=== PATIENT | female | born 1940 | race American Indian/Alaskan Native ===

== ENCOUNTER 2020-03-24 13:18 | Outpatient (CLI) | payer MEDICARE, OTHER ==
--- NOTE | 2020-03-24 15:42 | Mammography Report ---
DIGITAL DIAGNOSTIC MAMMOGRAM WITH CAD , 03/24/2020 CLINICAL INFORMATION / INDICATION: The patient has a history of a new left breast lump and nipple thi ckening. She underwent ultrasound-guided biopsy of the left breast lump and left axillary lymph node in Dr. Man's office earlier today. TECHNIQUE: Digital bilateral mammographic imaging was performed. This examination was interpreted with the benefit of Computer-aided Detection analysis. COMPARISON: Screening mammogram, 03/13/2019 and 02/28/2018 FINDINGS: Breast Density: The breasts are heterogeneously dense, which may obscure small masses. Right breast: No dominant mass, suspicious calcifications or architectural distortion in the right br east. Few scattered right breast calcifications appear stable. Left breast: There is a new irregular mass which contains a biopsy clip in the left breast at the 11: 00 position posterior depth measuring approximately 3 cm. There is new associated skin thickening. IMPRESSION: Irregular left breast mass at the 11:00 position which is highly suggestive for neoplasm. The skin of the left breast is also diffusely thickened. Biopsy has been performed and results are p ending at this time. The patient has follow-up scheduled with Dr. Man. Follow up recommendation: Surgical consult BI-RADS Category 5: Highly Suggestive of Malignancy. A "normal" or negative report should not discourage follow up or biopsy of a clinically significant f inding. A written summary of these findings will be mailed to the patient. The patient will be entered into a mammography reporting system which will generate a reminder letter for the patient's next appointmen t at the appropriate interval. According to the [employer], yearly mammograms are recommended starting at age 40 and continuing as long as a woman is in good health. Breast MRI is recommended for women with an sakshi roximately 20-25% or greater lifetime risk of breast cancer, including women with a strong family his tory of breast or ovarian cancer and women who have been treated for Hodgkin's disease. Signer Name: Cindy Mejia MD Signed: 03/24/2020 3:37 PM Workstation Name: [id number]
== END 2020-03-24 13:19 | disposition home or self-care (01) ==
LOC: SPVWC 13:18
PROVIDERS: ATTEND Surgery
DX: N63.22 Unspecified lump in the left breast, upper inner quadrant (principal); R92.8 Other abnormal and inconclusive findings on diagnostic imaging of breast
CPT/HCPCS: 77066

== ENCOUNTER 2020-03-25 09:43 | Outpatient (CLI) | payer MEDICARE, OTHER | END 2020-03-25 09:44 | disposition home or self-care (01) | LOC: LABHHL 09:43 | PROVIDERS: ATTEND Surgery | DX: N63.22 Unspecified lump in the left breast, upper inner quadrant (principal); N63.32 Unspecified lump in axillary tail of the left breast; C50.212 Malignant neoplasm of upper-inner quadrant of left female breast; C50.311 Malignant neoplasm of lower-inner quadrant of right female breast; R92.2 Inconclusive mammogram | CPT/HCPCS: 88305; 88341; 88342; 88368 ==

== ENCOUNTER 2020-04-02 11:47 | Outpatient (CLI) | payer MEDICARE, OTHER | END 2020-04-02 11:48 | disposition home or self-care (01) | LOC: LABHHL 11:47 | PROVIDERS: ATTEND Surgery | DX: L98.9 Disorder of the skin and subcutaneous tissue, unspecified (principal) | CPT/HCPCS: 88305 ==

== ENCOUNTER 2020-04-27 14:30 | Outpatient (CLI) | payer MEDICARE, OTHER ==
--- NOTE | 2020-05-03 11:52 | Magnetic Resonance Report ---
MRI BREAST BILATERAL WITH AND WITHOUT CONTRAST, 04/27/2020 CLINICAL INFORMATION / INDICATION: BREAST CA C50.212. Patient presents for evaluation of extent of di sease of recent biopsy proven left breast cancer. TECHNIQUE: Axial T1 and T2-weighted fat sat images were obtained precontrast. Gadolinium-based contra st was injected intravenously and serial axial T1 weighted images with fat saturation were obtained. 3-D MIP projections, kinetic analysis, and subtraction imaging were utilized to evaluate. A dedicated 8-channel breast coil was used for image acquisition. COMPARISON: Prior mammogram 03/24/2020 FINDINGS: BREAST DENSITY: The breasts are heterogeneously dense, which may obscure small masses. BACKGROUND ENHANCEMENT: Low level background enhancement within both breasts. RIGHT BREAST: No dominant mass or suspicious area of enhancement in the right breast. LEFT BREAST: Corresponding with the site of biopsy-proven malignancy in the far posterior upper inner quadrant of the left breast, there is an irregular enhancing mass measuring up to approximately 6.6 x 4.1 x 3.8 cm. This dominant mass is located approximately 12 cm from the nipple, 1 cm from the medi al skin surface, and 1 to 2 mm from the chest wall, without definite evidence for chest wall invasion . There are multiple additional highly suspicious nodular areas of enhancement scattered throughout t he left breast, for example, a 1.1 cm mass in the 2:00 to 3:00 position located 8 cm from the nipple (series [id number], image 112), and a 7 mm mass in the anterior upper outer quadrant of the left breast ap proximately 3 cm from the nipple (series [id number], image 81). There is diffuse left breast skin thickeni ng and edema. AXILLAE: There is a pathologically enlarged left level 1 axillary lymph node measuring up to 2.2 x 1. 3 cm with diffuse cortical thickening. There is an indeterminate borderline right level 1 axillary ly mph node measuring up to 1.2 x 0.9 cm (series 6, image 401). ADDITIONAL FINDINGS: There is a 1.8 cm pulmonary nodule in the left upper lobe (series 5, image 12). There is a 6.3 x 2.1 cm lobulated cystic structure adjacent to the right shoulder (series 5, image 20 ). IMPRESSION: 1. Extensive multifocal and multicentric malignancy throughout the left breast as described above, wi th a dominant mass in the posterior upper inner quadrant, but additional scattered masses throughout the left breast. Associated diffuse left breast skin thickening and edema. 2. A pathologically enlarged left axillary lymph node is most compatible with joel metastasis. 3. A borderline right level 1 axillary lymph node is indeterminate. Otherwise, no suspicious MRI abno rmality identified in the right breast 4. A left upper lobe pulmonary nodule is indeterminate but worrisome for metastatic disease. A chest CT could provide further characterization as clinically warranted. 5. A lobulated cystic structure adjacent to the right shoulder is indeterminate and may reflect seque la of prior injury, though clinical correlation is recommended. Follow up recommendation: No recall. BI-RADS Category 6: Known Biopsy-Proven Malignancy. Signer Name: Leola Parker MD Signed: 05/03/2020 11:48 AM Workstation Name: [email or web address]
== END 2020-04-27 14:31 | disposition home or self-care (01) ==
LOC: SPVIMAG 14:30
PROVIDERS: ATTEND Surgery
DX: C50.212 Malignant neoplasm of upper-inner quadrant of left female breast (principal); N63.21 Unspecified lump in the left breast, upper outer quadrant; R91.1 Solitary pulmonary nodule; R59.0 Localized enlarged lymph nodes; N63.42 Unspecified lump in left breast, subareolar; R23.4 Changes in skin texture
CPT/HCPCS: A9575; C8908; 77049

== ENCOUNTER 2020-05-12 13:39 | Outpatient (CLI) | payer MEDICARE, OTHER ==
--- NOTE | 2020-05-14 08:01 | Ultrasound Report ---
ULTRASOUND BREAST LEFT COMPLETE, 05/12/2020 CLINICAL INFORMATION / INDICATION: Known left breast carcinoma. TECHNIQUE: Complete sonographic evaluation of all 4 quadrants and retroareolar region was performed. COMPARISON: Recent breast MRI 04/27/2020 and bilateral mammogram 03/24/2020 FINDINGS: Left breast: There is a large irregular solid mass in the upper inner quadrant of the left breast pos terior depth. Measurements sonographically are approximately 4 x 3.6 x 2.7 cm. MRI demonstrated large r measurements of 6.6 x 4.1 x 3.8 cm. The breast tissue is heterogeneous throughout. I do not see def initive sonographic correlate for the multiple small enhancing masses throughout the breast as noted on MRI that would suggest multicentric carcinoma. Incidental finding of subareolar ductal ectasia. Sonographic evaluation of the left axilla demonstrates at least one abnormal lymph node with diffuse cortical thickening of 6 mm. The appearance is very suggestive for metastatic lymph node. IMPRESSION: Biopsy-proven large breast carcinoma within the upper inner quadrant of the left breast. Abnormal left axillary lymph node highly suggestive for metastatic adenopathy. Follow up recommendation: Continued surgical consultation. BI-RADS Category 6: Known Biopsy-Proven Malignancy. A normal or "negative" report should not preclude biopsy or follow-up of a clinically suspicious find ing. Signer Name: Jimena Dong MD Signed: 05/12/2020 4:14 PM Workstation Name: [email or web address]
== END 2020-05-12 13:40 | disposition home or self-care (01) ==
LOC: SPVWC 13:39
PROVIDERS: ATTEND Surgery
DX: C50.212 Malignant neoplasm of upper-inner quadrant of left female breast (principal)

== ENCOUNTER 2020-05-27 13:17 | Outpatient (CLI) | payer MEDICARE, OTHER ==
--- NOTE | 2020-05-27 15:57 | PET Report ---
PET/CT HISTORY: C50.212. Initial staging of left breast cancer TECHNIQUE: The patient's fasting blood glucose was 130. The patient weighed 220 lbs. The patient w as injected with 14.2 mCi of FDG in the right hand at 1418 hours and imaging was started at 1503 hour s. The patient was imaged from the skull base to the thighs. All CT scans at this location are perfo rmed using CT dose reduction for ALARA by means of automated exposure control. Images were reviewed o n a workstation. COMPARISON: No relevant comparison. FINDINGS: IMAGED BRAIN: Physiologic FDG uptake. NECK: Physiologic FDG uptake. CHEST WALL: There is an approximate 5.7 x 4.0 cm medial left breast mass demonstrating hypermetaboli c activity with max SUV measuring 6.7. MEDIASTINUM: Physiologic FDG uptake. LUNGS: Physiologic FDG uptake. There is a 1.3 cm well-circumscribed nodule in the left upper lobe on CT image 72. There appears to be both soft tissue and fat density within consistent with a pulmonary hamartoma. No hypermetabolic activity with max SUV measuring 0.8. No suspicious hypermetabolic pulmo nary lesion. HEPATOBILIARY: Physiologic FDG uptake. PANCREAS: Physiologic FDG uptake. SPLEEN: Physiologic FDG uptake. KIDNEYS/BLADDER: Physiologic FDG uptake. ADRENAL GLANDS: Physiologic FDG uptake. GI/MESENTERY: Physiologic FDG uptake. PELVIC VISCERA: Physiologic FDG uptake. LYMPH NODES: A solitary enlarged left axillary lymph node measures 2.2 x 1.5 cm and demonstrates a m ax SUV of 2.7. OSSEOUS STRUCTURES: Physiologic FDG uptake. No suspicious bony lesion is detected. ADDITIONAL FINDINGS: None. IMPRESSION: Hypermetabolic left breast mass consistent with primary left breast cancer with metastasis to a solit emery enlarged left axillary lymph node as described. No pulmonary, hepatic, joel or osseous metastasi s are appreciated. 1.3 cm hypometabolic left upper lobe nodule is consistent with a pulmonary hamartoma. Signer Name: Rene Mckinley Jr, MD Signed: 05/27/2020 3:53 PM Workstation Name: [id number]
== END 2020-05-27 13:18 | disposition home or self-care (01) ==
LOC: PET 13:17
PROVIDERS: ATTEND Surgery
DX: C50.212 Malignant neoplasm of upper-inner quadrant of left female breast (principal)
CPT/HCPCS: 78815; 82962; A9552

== ENCOUNTER 2020-06-09 07:33 | Observation (INO) | payer MEDICARE, OTHER ==
[2020-06-07 13:17] LABS: Basophils % (Auto) 0.3 % (0.0-1.8); Eosinophils # (Auto) 0.1 K/mm3 (0.0-0.4); Eosinophils % (Auto) 0.8 % (0.0-4.3); Hematocrit 40.8 % (30.3-42.9); Hemoglobin 14.2 gm/dl (10.1-14.3); Lymphocytes # (Auto) 1.6 K/mm3 (1.2-5.4); Lymphocytes % (Auto) 18.6 % (13.4-35.0); Mean Corpuscular HGB Conc 35 % (30-34); Mean Corpuscular Volume 94 fl (79-97); Monocytes % (Auto) 11.1 % (0.0-7.3); Platelet Count 289 K/mm3 (140-440); Red Blood Count 4.34 M/mm3 (3.65-5.03); Red Cell Distribution Width 12.5 % (13.2-15.2)
[2020-06-07 13:31] LABS: Alanine Aminotransferase 12 units/L (7-56); Albumin 4.9 g/dL (3.9-5); BUN/Creatinine Ratio 10; Blood Urea Nitrogen 8 mg/dL (7-17); Hemolysis Index 4
--- NOTE | 2020-06-07 14:02 | Anesthesia Consultation ---
Anesthesia Consult and Med Hx Date of service: 06/09/20 - Airway Anesthetic Teeth Evaluation: Dentures ROM Head & Neck: Adequate Mental/Hyoid Distance: Adequate Mallampati Class: Class III Intubation Access Assessment: Possibly Difficult - Pulmonary Exam CTA: Yes - Cardiac Exam Cardiac Exam: RRR - Pre-Operative Health Status ASA Pre-Surgery Classification: ASA3 Proposed Anesthetic Plan: General Nerve Block: PECS II - Pulmonary Hx Smoking: Yes (former smoker) Hx Respiratory Symptoms: No COPD: Yes (last inhaler use several months ago) Home Oxygen Therapy: No - Cardiovascular System Hx Hypertension: Yes Hx Heart Attack/AMI: No (neg ST 04/2020, normal EF 05/2020) Hx Percutaneous Transluminal Coronary Angioplasty (PTCA): No Hx Cardia Arrhythmia: No (neg cardiac work up for palpitations) - Central Nervous System CVA: No Hx Psychiatric Problems: Yes (anxiety; takes xanax prn, use more frequently in recent weeks) - Gastrointestinal Hx Gastroesophageal Reflux Disease: Yes (diet controlled) - Endocrine Hx Renal Disease: No Hx Liver Disease: No Hx Insulin Dependent Diabetes: No Hx Non-Insulin Dependent Diabetes: No Hx Thyroid Disease: No - Other Systems Hx Cancer: Yes (breast ca) Hx Obesity: Yes (BMI 35) - Additional Comments Anesthesia Medical History Comments: No hx anesthetic complications. Advised ok to take home dose xanax prn for anxiety morning of surgery.
[~2020-06-09 07:33] MED LIST: ACETAMINOPHEN 500 MG TAB PO SCH; LACTATED RINGERS 1,000 ML IV SCH; MIDAZOLAM 2 MG/2 ML INJ IV NR; ceFAZolin/Water 2 GM/20 ML 2 GM/20 ML SYRINGE IV NR; fentaNYL 100 MCG/2 ML INJ IV PRN
[2020-06-09] MEDS ORDERED: BUPIVACAINE/PF (0.5%) 5 MG/1 ML 30 ML VIAL INFILTRATI ONE (08:44)
[2020-06-09] MEDS ORDERED: LIDOCAINE (1%) 10 MG/1 ML VIAL 20 ML MDV ONE (08:44)
[2020-06-09] MEDS ORDERED: dexAMETHasone 4 MG/ML VIAL ONE (08:44)
[2020-06-09] MEDS ORDERED: ROCURONIUM 50 MG/5 ML INJ IV ONE (08:55)
[2020-06-09] MEDS ORDERED: LIDOCAINE MPF (2%) 20 MG/1 ML VIAL 5 ML ONE (08:55)
[2020-06-09] MEDS ORDERED: propofoL 200 MG/20 ML VIAL IV ONE (08:55)
[2020-06-09] MEDS ORDERED: HYDROmorphone 1 MG/1 ML INJ ONE (08:55)
[2020-06-09] MEDS ORDERED: ONDANSETRON 4 MG/2 ML INJ IV PRN ×2 (09:07→14:00)
[2020-06-09] MEDS ORDERED: fentaNYL 100 MCG/2 ML INJ IV PRN (09:07)
--- NOTE | 2020-06-09 09:07 | Anesthesia Day of Surgery ---
Anesthesia Day of Surgery - Day of Surgery Patient Examined: Yes Patient H&P Reviewed: Yes Patient is NPO: Yes
[2020-06-09] MEDS ORDERED: ePHEDrine SULFATE 50 MG/1 ML INJ ONE (09:47)
[2020-06-09] MEDS ORDERED: WATER FOR IRRIG STERILE 1,000 ML BOTTLE IR ONE (10:08)
[2020-06-09] MEDS ORDERED: NEOSTIGMINE 10MG/10 ML INJ MDV ONE (11:18)
[2020-06-09] MEDS ORDERED: GLYCOPYRROLATE 0.4 MG/2 ML INJ ONE (11:18)
[2020-06-09] MEDS ORDERED: ONDANSETRON 4 MG/2 ML INJ ONE (13:16)
[2020-06-09] MEDS ORDERED: LACTATED RINGERS 1,000 ML ONE (13:17)
--- NOTE | 2020-06-09 13:31 | Short Stay Summary ---
Short Stay Documentation Date of service: 06/09/20 - History H&P: obtained from office - Allergies and Medications Current Medications: Allergies Sulfa (Sulfonamide Antibiotics) Allergy (Verified 06/03/20 12:14) Itching Tetracyclines Allergy (Verified 06/03/20 12:14) Itching Home Medications Medication Instructions Recorded Confirmed Last Taken Type ALPRAZolam [Xanax TAB] 0.5 mg PO HS 06/07/20 06/09/20 06/09/20 05:00 History Calcium Carbonate [Calcium] 600 mg PO DAILY 06/07/20 06/09/20 06/08/20 09:00 History Lactobacillus Combination No.8 1 each PO DAILY 06/07/20 06/09/20 06/08/20 09:00 History [Adult Probiotic] Magnesium Oxide [Magnesium] 500 mg PO DAILY 06/07/20 06/09/20 06/08/20 09:00 History Metoprolol Tartrate [Lopressor] 12.5 mg PO BID 06/07/20 06/09/20 06/09/20 05:00 History Active Medications Acetaminophen (Acetaminophen 500 Mg Tab) 1,000 mg PO PREOP TRUDY Stop: 06/09/20 21:00 Last Admin: 06/09/20 08:55 Dose: 1,000 mg Documented by: Fentanyl (Fentanyl 100 Mcg/2 Ml Inj) 100 mcg IV ONCE PRN PRN Reason: sedation for nerve block Stop: 06/09/20 21:00 Last Admin: 06/09/20 08:58 Dose: 100 mcg Documented by: Fentanyl (Fentanyl 100 Mcg/2 Ml Inj) 50 mcg IV Q5MIN PRN PRN Reason: Pain , Severe (7-10) Stop: 06/09/20 23:00 Cefazolin Sodium (Ancef/Sterile Water 2 Gm/20 Ml) 2 gm in 20 mls @ 80 mls/hr IV PREOP NR; Protocol Stop: 06/09/20 23:59 Lactated Ringer's (Lactated Ringers) 1,000 mls @ 100 mls/hr IV DIRECT TRUDY Stop: 06/09/20 23:59 Last Admin: 06/09/20 08:55 Dose: 100 mls/hr Documented by: Midazolam HCl (Midazolam 2 Mg/2 Ml Inj) 2 mg IV PREOP NR Stop: 06/09/20 21:00 Last Admin: 06/09/20 08:58 Dose: 2 mg Documented by: Ondansetron HCl (Ondansetron 4 Mg/2 Ml Inj) 4 mg IV ONCE PRN PRN Reason: Nausea And Vomiting Stop: 06/09/20 23:00 - Brief post op/procedure progress note Date of procedure: 06/09/20 Pre-op diagnosis: Left breast cancer upper inner quadrant Post-op diagnosis: same Procedure: Left modified radical mastectomy Anesthesia: GETA Findings: Left breast mass and clip present; bulky left axillary lymphadenopathy Surgeon: MASTER ESPINOSA Estimated blood loss: 50-100ml Pathology: list (left modified radical mastectomy) Specimen disposition: to lab Condition: stable - Disposition Condition at discharge: Good Disposition: [id number]/TX-02 SHRT-TRM GEN HOSP IP Short Stay Discharge Plan Activity: other (no heavy lifting) Diet: regular Wound: keep clean and dry (wear breast binder) Follow up with: MASTER ESPINOSA MD [Staff Physician] - 7 Days
[2020-06-09] MEDS ORDERED: LACTATED RINGERS 1,000 ML IV SCH (13:45)
--- NOTE | 2020-06-09 13:49 | Operative Report ---
Operative Report Operative Report: Operative Report: Date of Service: June 09, 2020 Preoperative diagnosis: Left breast cancer of the upper inner quadrant Postoperative diagnosis: Same Procedure: Left total mastectomy with ALND-left modified radical mastectomy Surgeon: Tiera Man M.D. Pattern Assembler: Warren Craft M.D. Anesthesia: Gen. Findings: Left breast clip present within left total mastectomy; left axillary lymph node dissection with bulky left axillary lymphadenpathy Complications: None Drains: Two 19 Kazakh NAE drains Estimated blood loss: Less than 100 cc Disposition: PACU in good condition Indications for operative procedure: This is a 79-year-old lady with stage II left breast cancer of the upper inner quadrant, [id number] ER/AK positive. Recommendations were to proceed with a left modified radical mastectomy; patient with diagnostic imaging findings of multicentric left breast cancer, known palpable large mass at the 11:00 position 7 cm FN and positive axillary joel metastasis. Given high ER/AK positivity recommendations were to proceed with an ALND given probable poor response to neoadjuvant chemotherapy. She has met with radiation oncology and medical oncology and understands the role of possible adjuvant chemoradiation therapy pending final pathology. Patient with multice ntric left breast cancer and recommendations were to proceed with a left total mastectomy, patient wished to proceed with a left mastectomy as well. She declined PRS. She wished to proceed with the above procedure. Procedure in detail: Anesthesia placed left pectoral block. The patient was then taken to the operating room and was placed supine. Gen. anesthesia was administered. Patient with known palpable malignancy left breast 11:00 position and breast MRI concerning for additional disease of the upper outer quadrant. Left breast and axilla was prepped and draped in the normal sterile operative fashion. Timeout was performed. Typical mastectomy incision markings were made and encompassing known area of malignancy at 11:00 position. Ultrasound used as well to javier area of known left axillary joel metastasis and location of known malignancy. Attention was taken towards the left breast. Skin markings were made to include the area of known cancer. A skin incision was made with a 10 blade knife and dissection taken down to the subcutaneous tissues. First began raising of the superior flap to the level of the clavicle superiorly and posteriorly to the pectoralis muscle. Followed by raising of the medial flap to the level of the sternum and posteriorly to the pectoralis muscle. Followed by raising of the lateral flap to the level of the latissimus dorsi muscle and taken down poste riorly. Then proceeded with raising of the inferior flap to the level of the inframammary fold taken posterior to the pectoralis muscle. The mastectomy/breast was removed from the pectoralis muscle without incident. The specimen was appropriately marked and sent to radiology with findings of breast clip present and sent to pathology. Breast tissue noted for significant edema throughout. Attention was then taken towards the left axilla. First began opening of the axillary fascia. The lattismus dorsi muscle was identified and followed superiorly. Then proceeded with identification of the axillary vein followed by identification of the thoracodorsal bundle and long thoracic nerve. Axillary lymph nodes were then removed from the above boundaries with the aid of the bovie cautery in a sweeping-like motion and then sent to pathology. Axillary lymph nodes from level I and II were removed. Both nerves were identified and unharmed. Bulky axillary lymphadenopathy was noted. Hemostasis was noted. The chest wall was irrigated and suctioned. Hemostasis was obtained. The chest wall was irrigated and hemostasis was noted. Two 19 Kazakh NAE drains were placed. The subcutaneous tissues were approximated and closed using interrupted 3-0 Vicryl and the skin closed using a running 4-0 Monocryl and then dermabond. She was awaken from anesthesia. The patient tolerated surgery very well and she was transported to PACU in good condition.
[2020-06-09] MEDS ORDERED: HYDROmorphone 2 MG TAB PO PRN (14:00)
[2020-06-09] MEDS ORDERED: diphenhydrAMINE 25 MG CAP PO PRN (14:00)
[2020-06-09] MEDS ORDERED: MORPHINE 2 MG/1 ML INJ IV PRN (14:00)
[2020-06-09] MEDS ORDERED: METOCLOPRAMIDE 10 MG TAB PO PRN (14:00)
[2020-06-09] MEDS ORDERED: ACETAMINOPHEN 325 MG TAB PO PRN (14:00)
--- NOTE | 2020-06-09 14:20 | Mammography Report ---
BREAST SPECIMEN RADIOGRAPH HISTORY: Lumpectomy FINDINGS/IMPRESSION: The submitted radiograph or radiographs demonstrate(s) the presence of diffuse fibroglandular tissue with suggestion of large posterior mass. The nipple appears to be included within the specimen. Signer Name: Jimena Dong MD Signed: 06/09/2020 2:15 PM Workstation Name: [id number]
--- NOTE | 2020-06-09 15:27 | Post Anesthesia Evaluation ---
- Post Anesthesia Evaluation Patient Participated: Yes Airway Patent: Yes Stable Respiratory Function: Yes Nausea/Vomiting: No Temp > 96.8F: Yes Pain Manageable: Yes Adequeate Hydration: Yes Anesthesia Complications: No
[2020-06-09] MEDS: oxyCODONE /ACETAMINOPHEN 5-325MG TAB PO PRN (21:36)
[2020-06-09] MEDS ORDERED: DOCUSATE SODIUM 100 MG CAP PO SCH (22:00)
[2020-06-10] MEDS: oxyCODONE /ACETAMINOPHEN 5-325MG TAB PO PRN (04:19)
[2020-06-10 09:01] VITALS: BP 153/63
--- NOTE | 2020-06-10 09:15 | Progress Note ---
Assessment and Plan This is a 79 year old lady with Stage II left breast cancer, POD#1 left MRM. 1. No acute events overnight, pain in good control. 2. Left chest incision healing well, no hematoma, NAE drains to bulb suction. 3. NAE drain education. 4. OOB to hallway. 5. D/C planning for today. Subjective Date of service: 06/10/20 Principal diagnosis: Stage II left breast cancer Interval history: POD#1 left MRM Objective - Constitutional Vitals: Vital Signs - 12hr 06/09/20 06/10/20 06/10/20 21:36 00:22 04:19 Temperature 98.1 F Pulse Rate 71 Respiratory 20 18 18 Rate Blood Pressure 136/66 Blood Pressure [Left] O2 Sat by Pulse 94 Oximetry 06/10/20 06/10/20 04:30 08:56 Temperature 98.6 F 97.9 F Pulse Rate 77 62 Respiratory 16 16 Rate Blood Pressure Blood Pressure 125/78 153/63 [Left] O2 Sat by Pulse 96 Oximetry General appearance: Present: no acute distress - EENT Eyes: PERRL, EOM intact ENT: hearing intact, clear oral mucosa, dentition normal Ears: bilateral: normal - Neck Neck: supple, normal ROM - Respiratory Respiratory effort: normal - Breasts Breasts: other (left chest incision healing well; no hematoma; skin well perfused; NAE drains to bulb suction) - Cardiovascular Rhythm: regular Extremities: no ischemia, pulses intact, pulses symmetrical, No edema, normal temperature, normal color, Full ROM - Gastrointestinal General gastrointestinal: Present: soft, non-tender, non-distended Rectal Exam: deferred - Genitourinary Female genitourinary: deferred - Integumentary Integumentary: clear, warm, dry - Musculoskeletal Musculoskeletal: strength equal bilaterally - Neurologic Neurologic: CNII-XII intact, moves all extremities, gait normal - Psychiatric Psychiatric: appropriate mood/affect, intact judgment & insight, memory intact, cooperative - Labs CBC & Chem 7: 06/07/20 12:45 06/07/20 12:45 Labs: Abnormal lab results 06/09/20 Range/Units 13:50 POC Glucose 156 H (70-105) mg/dL Medications & Allergies - Medications Allergies/Adverse Reactions: Allergies Sulfa (Sulfonamide Antibiotics) Allergy (Verified 06/03/20 12:14) Itching Tetracyclines Allergy (Verified 06/03/20 12:14) Itching Home Medications: Home Medications Medication Instructions Recorded Confirmed Last Taken Type ALPRAZolam [Xanax TAB] 0.5 mg PO HS 06/07/20 06/09/20 06/09/20 05:00 History Calcium Carbonate [Calcium] 600 mg PO DAILY 06/07/20 06/09/20 06/08/20 09:00 History Lactobacillus Combination No.8 1 each PO DAILY 06/07/20 06/09/20 06/08/20 09:00 History [Adult Probiotic] Magnesium Oxide [Magnesium] 500 mg PO DAILY 06/07/20 06/09/20 06/08/20 09:00 History Metoprolol Tartrate [Lopressor] 12.5 mg PO BID 06/07/20 06/09/20 06/09/20 05:00 History oxyCODONE /ACETAMINOPHEN [Percocet 1 tab PO Q6HR PRN #20 tablet 06/09/20 Unknown Rx 5/325] Active Medications: Generic Name Dose Route Start Last Admin Trade Name Freq PRN Reason Stop Dose Admin Acetaminophen 650 mg 06/09/20 14:00 06/09/20 17:46 Acetaminophen 325 Mg Tab PO 650 mg Q6H PRN Administration Pain MILD(1-3)/Fever >100.5/BARNARD Diphenhydramine HCl 25 mg 06/09/20 14:00 Diphenhydramine 25 Mg Cap PO Q8H PRN Itching Docusate Sodium 100 mg 06/09/20 22:00 06/09/20 21:36 Docusate Sodium 100 Mg Cap PO 100 mg BID TRUDY Administration Hydromorphone HCl 2 mg 06/09/20 14:00 Hydromorphone 2 Mg Tab PO Q6H PRN Pain , Severe (7-10) Lactated Ringer's 1,000 mls @ 125 mls/hr 06/09/20 13:45 Lactated Ringers IV DIRECT TRUDY Metoclopramide HCl 10 mg 06/09/20 14:00 Metoclopramide 10 Mg Tab PO Q6H PRN Nausea And Vomiting Morphine Sulfate 2 mg 06/09/20 14:00 Morphine 2 Mg/1 Ml Inj IV Q4H PRN Pain, Moderate (4-6) Ondansetron HCl 4 mg 06/09/20 14:00 Ondansetron 4 Mg/2 Ml Inj IV Q8H PRN N/V unrelieved by [place] Oxycodone/Acetaminophen 1 tab 06/09/20 14:00 06/10/20 04:19 Oxycodone /Acetaminophen 5-325mg Tab PO 1 tab Q6H PRN Administration Pain, Moderate (4-6) Sodium Chloride 10 ml 06/09/20 13:31 Sodium Chloride 0.9% 10 Ml Flush Syringe IV PRN PRN LINE FLUSH
== END 2020-06-10 10:37 | disposition home or self-care (01) ==
LOC: OR 07:33 → OB 13:31
PROVIDERS: ADMIT Surgery; ATTEND Surgery
DX: C50.212 Malignant neoplasm of upper-inner quadrant of left female breast (principal); Z20.822 Contact with and (suspected) exposure to COVID-19; I10 Essential (primary) hypertension; J98.4 Other disorders of lung; Z98.890 Other specified postprocedural states; Z79.899 Other long term (current) drug therapy
CPT/HCPCS: 19307; 36415; 64450; 76098; 80053; 82962; 85025; 88307; 88309; G0378; J0690; J1100; J1170; J2250; J2405; J2704; J2710; J3010; J7120; U0003

== ENCOUNTER 2020-12-23 08:40 | Outpatient (CLI) | payer MEDICARE, OTHER ==
--- NOTE | 2020-12-23 12:13 | PET Report ---
PET-CT SCAN INDICATION / CLINICAL INFORMATION: C50.212. Left breast cancer. STAGING: Re-staging TECHNIQUE: Tumor imaging, positron emission tomography (PET) with concurrently acquired computed tomography (CT) for attenuation correction and anatomical localization; Skull Base to Mid Thigh - DOSE: 13.97 mCi F-18 FDG was administered IV per protocol in the right hand - GLUCOSE: Glucose level checked for diabetics only. - UPTAKE TIME: PET scan performed approximately 60 minutes after radiotracer administration. - CT SCAN DESCRIPTION: No oral or IV contrast. All CT scans at this location are performed using CT d ose reduction for ALARA by means of automated exposure control. COMPARISON: PET CT dated 05/27/2020 FINDINGS: HEAD / NECK: No abnormal radiotracer uptake in the neck. No significant CT abnormality. CHEST: There has been interval left mastectomy with generalized abnormally increased uptake seen jesus g the left chest wall with a maximum SUV of 7.9. No distinct mass is seen in this location. No other sites of abnormally increased metabolic activity. The previously described nonhypermetabolic left upp er lobe nodule is slightly larger and measures 1.5 cm on image 72, previously 1.4 cm by remeasurement . No other significant interval changes. ABDOMEN / PELVIS: No abnormal radiotracer uptake in the abdomen or pelvis. No significant CT abnormal ity. LOWER EXTREMITIES: No abnormal radiotracer uptake in the visualized lower extremities. No significant CT abnormality. SKELETAL STRUCTURES: There is a new hypermetabolic lesion in the T6 vertebral body measuring approxim ately 2.0 x 1.5 cm and involving the majority of the vertebral body with a maximum SUV of 8.0, locali zing to image [address] without a suspicious CT correlate. No other hypermetabolic bone lesions ar e seen. No other significant interval changes. ADDITIONAL FINDINGS: No additional significant findings. IMPRESSION: 1. Increased metabolic activity along the left chest wall, concerning for recurrent left breast cance r versus changes related to radiation therapy. 2. New hypermetabolic T6 vertebral body lesion is most concerning for metastatic disease until proven otherwise. 3. Minimally larger nonhypermetabolic left upper lobe nodule is still favored to represent a hamartom a. Continued close imaging follow up is recommended. 4. No other sites of FDG avid neoplastic disease. Signer Name: Kvng Amaral MD Signed: 12/23/2020 12:09 PM Workstation Name: [id number]
== END 2020-12-23 08:41 | disposition home or self-care (01) ==
LOC: PET 08:40
PROVIDERS: ATTEND Internal Medicine Hematology & Oncology
DX: C50.212 Malignant neoplasm of upper-inner quadrant of left female breast (principal); I10 Essential (primary) hypertension; F41.9 Anxiety disorder, unspecified; E86.0 Dehydration; R68.2 Dry mouth, unspecified; D70.9 Neutropenia, unspecified; N63.20 Unspecified lump in the left breast, unspecified quadrant; Z41.8 Encounter for other procedures for purposes other than remedying health state
CPT/HCPCS: 78815; 82962; A9552

== ENCOUNTER 2021-04-07 09:15 | Outpatient (CLI) | payer MEDICARE, OTHER ==
--- NOTE | 2021-04-07 13:25 | PET Report ---
PET/CT HISTORY: C50.212. Left breast cancer TECHNIQUE: The patient's fasting blood glucose was 125. The patient weighed 218 lbs. The patient w as injected with 16.5 mCi of FDG in the right hand at 1001 hours and imaging was started at 1105 hour s. The patient was imaged from the skull base to the thighs. All CT scans at this location are perfo rmed using CT dose reduction for ALARA by means of automated exposure control. Images were reviewed o n a workstation. COMPARISON: 12/23/2020 FINDINGS: IMAGED BRAIN: Physiologic FDG uptake. NECK: Physiologic FDG uptake. CHEST WALL: Stable left mastectomy changes. Skin thickening overlying the left breast has decreased since the previous exam. Previously described uptake in this area has decreased from SUV max of 7.9 t o 3.0. This is presumably related to radiation therapy which has improved. No new breast mass or tersee opathy is appreciated. MEDIASTINUM: Physiologic FDG uptake. LUNGS: Physiologic FDG uptake. Stable 1.5 cm nodule in the left upper lobe which remains hypometabol ic. No new pulmonary lesion. HEPATOBILIARY: Physiologic FDG uptake. PANCREAS: Physiologic FDG uptake. SPLEEN: Physiologic FDG uptake. KIDNEYS/BLADDER: Physiologic FDG uptake. ADRENAL GLANDS: Physiologic FDG uptake. GI/MESENTERY: Physiologic FDG uptake. PELVIC VISCERA: Physiologic FDG uptake. LYMPH NODES: Physiologic FDG uptake. OSSEOUS STRUCTURES: Previously described increased uptake in the T6 vertebral body has decreased fro m SUV max from 8.0 to 2.8. No new areas of abnormal bony uptake. ADDITIONAL FINDINGS: None. IMPRESSION: A positive response to therapy is demonstrated since 12/23/2020 exam. Uptake in the left breast tiss ue/surgical bed has decreased as described above and was most likely related to radiation changes. No discrete chest wall mass or adenopathy. Previously described hypermetabolic bony lesion in T6 has de creased significantly now demonstrating a max SUV of 2.8. Stable 1.5 cm left upper lobe pulmonary nod ule which probably represents a hamartoma. No new areas of disease are appreciated in the chest, abdo men or pelvis. Signer Name: Rene Mckinley Jr, MD Signed: 04/07/2021 1:21 PM Workstation Name: [id number]
== END 2021-04-07 09:16 | disposition home or self-care (01) ==
LOC: PET 09:15
PROVIDERS: ATTEND Internal Medicine Hematology & Oncology
DX: C50.212 Malignant neoplasm of upper-inner quadrant of left female breast (principal); R23.4 Changes in skin texture
CPT/HCPCS: 78815; 82962; A9552

== ENCOUNTER 2021-09-01 10:38 | Outpatient (CLI) | payer MEDICARE, OTHER ==
--- NOTE | 2021-09-01 15:49 | PET Report ---
POSITRON EMISSION TOMOGRAPHY WITH CT FOR ATTENUATION CORRECTION AND ANATOMIC CORRELATION ONLY Indication: Restaging breast cancer Comparison: 04/07/2021 Technique: Study was performed from skull base to mid thigh using 3.83 millicuries of F18-FDG injecte d into the right hand at 1108 hours with scan initiation time of 1153 hours. Just prior to injection, serum glucose level was measured at 112 mg/dl. Low-resolution CT without contrast was performed. All CT scans at this location are performed using CT dose reduction for ALARA by means of automated expo sure control. CT findings: Cervical surgical changes are again seen. Otherwise views of the neck and lower head miley w no significant abnormalities with only minimal mucosal thickening seen in the right maxillary sinus without air-fluid level. No significant focal bony lesions are noted. Port-A-Cath extending into the area of the atrial caval junction. Left mastectomy changes and axillary dissection changes are again seen with skin thickening. No obvious masses or abnormal fluid collections are seen at the mastectom y site with no significant change seen. No axillary adenopathy is obvious. However, just below the cardona rgical clips in the left axilla an area of irregular soft tissue density, previously having a scarlik e configuration, appears to be more thickened now with a transverse diameter of 1.5 cm compared with 8 mm. No right breast lesions are obvious. No mediastinal or hilar masses. No obvious endobronchial l esions. No pleural effusions. Mass in the left upper lobe continues to be stable and shows evidence o f internal fat most consistent with hamartoma as has been previously noted. No new pulmonary nodules or masses are seen. No obvious pneumonic infiltrates are noted. Mild chronic changes are again seen. Gallbladder and bile ducts normal. No urinary or bowel obstructive changes. No free fluid in the abdo men or pelvis. No lymphadenopathy. No abdominal or pelvic masses. No inflammatory changes. PET findings: Visualized head and neck show no hypermetabolic lesions. Diffuse mild activity in the l eft mastectomy bed and superficially in the skin is not significantly changed from prior study with m aximal SUV of 3.5, unchanged. The area of mildly increased soft tissue density in the lower left axil la shows increased focal activity with maximal SUV now 4.0 compared to 2.3 previously. No mediastinal or hilar significant activity is seen. The left upper lobe nodule continues to not be hypermetabolic with no significant activity seen. No other significant activity is noted in the thorax. Previously discussed T6 vertebral body activity is no longer significant. In the abdomen no hypermetabolic lesio ns are seen with only physiologic type activity noted. Within the pelvis no hypermetabolic lesions ar e seen. However, focal increased activity is new in the posterior left ilium with maximal SUV of 7.0. This does not clearly have a radiographic correlate. IMPRESSION: 1. Development of a probable metastatic lesion in the left posterior ilium which is strongly hypermet abolic without obvious radiographic correlate 2. Resolution of activity described previously at T6 3. Mild activity in the left mastectomy bed and overlying skin and is thought likely just related to surgical and radiation therapy change and is stable. 4. Mildly increased soft tissue density in the lower left axilla with focal moderate increased metabo lic activity which is new. I am concerned this may represent recurrent neoplastic disease. 5. Stable appearance of left upper lobe probable hamartoma Signer Name: Harlan Hillman MD Signed: 09/01/2021 3:44 PM Workstation Name: [id number]
== END 2021-09-01 10:39 | disposition home or self-care (01) ==
LOC: PET 10:38
PROVIDERS: ATTEND Internal Medicine Hematology & Oncology
DX: C50.212 Malignant neoplasm of upper-inner quadrant of left female breast (principal); I10 Essential (primary) hypertension; F41.9 Anxiety disorder, unspecified; Z79.899 Other long term (current) drug therapy
CPT/HCPCS: 78815; 82962; A9552